=== PATIENT | male | born 1965 ===

== ENCOUNTER 2021-12-15 08:15 | Outpatient (RCR) | payer BC, SELFPAY | END 2022-10-04 23:59 | disposition home or self-care (01) | PROVIDERS: Visit Provider Podiatrist Foot & Ankle Surgery | DX: M72.2 Plantar fascial fibromatosis (principal); Z51.89 Encounter for other specified aftercare | CPT/HCPCS: 97110; 97140; 97161; 97530; 97760; 97763 ==